=== PATIENT | female | born 1980 | race American Indian/Alaskan Native ===

== ENCOUNTER 2016-12-25 18:26 | Emergency (ER) | payer OTHER ==
[2016-12-25 18:38] VITALS: BP 137/96
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
== END 2016-12-25 22:07 | disposition home or self-care (01) ==
LOC: ED 18:26
DX: S00.12XA Contusion of left eyelid and periocular area, initial encounter (principal); Y04.2XXA Assault by strike against or bumped into by another person, initial encounter; Y93.89 Activity, other specified; Y99.8 Other external cause status; Y92.009 Unspecified place in unspecified non-institutional (private) residence as the place of occurrence of the external cause
CPT/HCPCS: 99282